=== PATIENT | female | born 1930 | race Caucasian/White ===

== ENCOUNTER 2016-08-25 09:13 | Emergency (ER) | payer MEDICARE ==
[2016-08-25 09:42] LABS: Bilirubin Negative (Negative); Blood, Urine Trace (Negative); Glucose, Urine (Dipstick) 100 mg/dL (Negative); Ketone, Urine Negative (Negative); Nitrite Positive (Negative); Protein, Urine (Dipstick) 30 mg/dL (Neg-Trace)
[2016-08-25 09:51] LABS: Bacteria/HPF 3+ HPF (None Seen); RBC/HPF 0-3 HPF (0-3)
--- NOTE | 2016-08-25 10:26 | ERRECORD ---
[facility] EMERGENCY RECORD HPI UTI (10:13 SROB) CHIEF COMPLAINT: Patient presents for evaluation of urinary tract infection signs or symptoms:, frequency, urine odor, Urine color/clarity: incontinence last night times 2. LOCATION: No localizing symptoms. QUALITY: Described as similar to previous episodes. SEVERITY: Maximum severity of symptoms moderate, Currently symptoms are moderate. TIME COURSE: Gradual onset of symptoms, 1, days priror to arrival. ASSOCIATED WITH FEMALE: She has been a bit more confused than usual but she does have dementia. EXACERBATED BY: Patient's condition exacerbated by nothing. RELIEVED BY: Patient's condition relieved by nothing. ROS (10:14 SROB) CONSTITUTIONAL: Historian denies chills, denies fever. ENT: Historian denies epistaxis, denies otalgia, denies rhinorrhea, denies sore throat. CARDIOVASCULAR: Historian denies chest pain. RESPIRATORY: Historian denies cough, denies shortness of breath. GI: Historian denies nausea, denies vomiting. GENITOURINARY FEMALE: She has had incontinence, frequency and foul odor to urine. MUSCULOSKELETAL: Historian denies neck pain. SKIN: Historian denies rash. NEUROLOGIC: Historian denies headache. PAST MEDICAL HISTORY (09:28 BDON) MEDICAL HISTORY: Past medical history includes pulmonary disease, pneumonia, Past medical history includes genitourinary history, urinary tract infection, Past medical history includes history of hyperlipidemia, high cholesterol, Past medical history includes history of hypertension, which has been treated, Past medical history includes neurological disease, dementia. FEMALE SURGICAL HISTORY: Surgical history of hysterectomy. Benign brain tumor removed. [id number]. PSYCHIATRIC HISTORY: Notes: dementia. SOCIAL HISTORY: Patient denies alcohol use, Patient denies drug use, Patient has no smoking history. KNOWN ALLERGIES No Known Drug Allergies CURRENT MEDICATIONS (09:25 BDON) amLODIPine: TABLET : Strength - 5 mg : ORAL Patient Dose: tab(s) Oral once a day (in the morning). aspirin: TABLET : Strength - 81 mg : ORAL Patient Dose: 1 tab(s) Oral once a day (in the morning). &a-1R&a+25V*p+0X*p1856J*c202B*c15G*c2P*p-0X&a-25V&a+1R Name: Amena Resendiz : 1930 F85 MedRec: [id number] AcctNum: [id number] Prepared: Sat Aug 25, 2016 13:35 by Interface Page 1 of 3 pMD [facility] EMERGENCY RECORD Lipitor: TABLET : Strength - 10 mg : ORAL Patient Dose: 1 tab(s) Oral once a day (in the morning). Myrbetriq: TABLET, EXTENDED RELEASE 24 HR : Strength - 25 mg : ORAL Patient Dose: 1 tab(s) Oral once a day (in the morning). cholecalciferol (vitamin D3): CAPSULE : Strength - 5,000 unit : ORAL Patient Dose: 1 tab(s) Oral once a day (in the morning). Namenda: TABLET : Strength - 10 mg : ORAL Patient Dose: 1 tab(s) Oral once a day (at bedtime). donepezil: TABLET : Strength - 5 mg : ORAL Patient Dose: 1 tab(s) Oral once a day (at bedtime). melatonin: CAPSULE : Strength - 10 mg : ORAL Patient Dose: mg Oral once a day. cranberry: CAPSULE : Strength - 1,000 mg : ORAL Patient Dose: mg Oral once a day. VITAL SIGNS VITAL SIGNS: BP: 182/77, Pulse: 52, Resp: 18, Temp: 98.3 (Oral), Pain: 3, O2 sat: 98, Time: 08/25/2016 09:25. (09:25 BDON) BP: 170/79, Pulse: 53, Time: 08/25/2016 10:35. (10:35 BDON) PHYSICAL EXAM (10:15 SROB) CONSTITUTIONAL: Vital signs reviewed, Patient alert and oriented to person, place and time. HEAD: Head exam included findings of head atraumatic, normocephalic. EYES: Pupils equally round and reactive to light, Extraocular muscles intact, Conjunctiva normal. ENT: Ear exam normal, external ear normal, no drainage, no bleeding, Nose exam normal, no bleeding from nares. NECK: Neck exam included findings of normal range of motion, Trachea midline, no jugular venous distention. RESPIRATORY CHEST: Respiratory exam included findings of no respiratory distress, Breath sounds clear, No wheezing, No rales, No rhonchi. CARDIOVASCULAR: Cardiovascular exam included findings of heart rate regular rate and rhythm, Heart sounds normal, normal S1, normal S2, no murmurs. ABDOMEN FEMALE: Abdominal exam normal. SKIN: Skin exam included findings of skin warm, dry. MEDICATION ADMINISTRATION SUMMARY Drug Name: Keflex, Dose Ordered: 500 mg, Route: Oral, Status: Given, &a-1R&a+25V*p+0X*a0777Q*c202B*c15G*c2P*p-0X&a-25V&a+1R Name: Amena Resendiz : 1930 F85 MedRec: [id number] AcctNum: [id number] Prepared: Sat Aug 25, 2016 13:35 by Interface Page 2 of 3 pMD [facility] EMERGENCY RECORD Time: 10:25 08/25/2016, Detailed record available in Medication Service section. PROBLEM LIST No recorded problems DIAGNOSIS (10:19 SROB) FINAL: PRIMARY: UTI. PRESCRIPTION (10:19 SROB) Keflex: CAPSULE : 500 mg : ORAL : Quantity: 1 Unit: cap(s) Route: ORAL Schedule: 4 times a day Dispense: 20 May substitute. Refills: No Refills . NOTES: No Refills. DISPOSITION PATIENT: Disposition Type: Discharge, Disposition: *Discharge Home, Disposition Transport: Ambulatory, Condition: Good. (10:19 SROB) Patient left the department. (10:46 BDON) Faith: BDON=YANE Ly, Bhavani SROB=MD Ned, [facility] &a-1R&a+25V*p+0X*l7392Z*c202B*c15G*c2P*p-0X&a-25V&a+1R Name: Amena Resendiz : 1930 F85 MedRec: [id number] AcctNum: [id number] Prepared: Sat Aug 25, 2016 13:35 by Interface Page 3 of 3 pMD MTDD
[2016-08-25] MEDS ORDERED: Cephalexin 500 MG CAP ONE (10:27)
--- NOTE | 2016-08-25 10:33 | PICIS ---
[facility] EMERGENCY RECORD TRIAGE ([facility] Aug 25, 2016 09:24 BDON) TRIAGE NOTES: Increased confusion, strong urine smell with incontinence. ([facility] Aug 25, 2016 09:24 BDON) PATIENT: NAME: Amena Resendiz, AGE: 85, GENDER: female, : [id number], TIME OF GREET: SatAug 25, 2016 09:14, PREFERRED LANGUAGE: Indonesian, ETHNICITY: Not or , ECODE BILLING MAP: [facility], SSN: [id number], Zip Code: [address], KG WEIGHT: 52.16, PHONE: , , , PERSON ID: [id number], PCP: Jonel HELM POLLACHI. ([facility] Aug 25, 2016 09:24 BDON) COMPLAINT: UTI. ([facility] Aug 25, 2016 09:24 BDON) ADMISSION: URGENCY: 4 Non Urgent, ADMISSION SOURCE: Home, TRANSPORT: Walk-in, BED: TRIAGE. ([facility] Aug 25, 2016 09:24 BDON) ASSESSMENT: Assessment: Incontinence, confusion, Symptoms began 2 days ago. (09:28 BDON) TREATMENTS IN PROGRESS: Treatments given Prehospital: [facility]. (09:28 BDON) PROVIDERS: TRIAGE NURSE: Bhavani Ly RN. ([facility] Aug 25, 2016 09:24 BDON) PREVIOUS VISIT ALLERGIES: No Known Drug Allergies. ([facility] Aug 25, 2016 09:24 BDON) No Known Drug Allergies. (09:28 BDON) KNOWN ALLERGIES No Known Drug Allergies CURRENT MEDICATIONS (09:25 BDON) amLODIPine: TABLET : Strength - 5 mg : ORAL Patient Dose: tab(s) Oral once a day (in the morning). aspirin: TABLET : Strength - 81 mg : ORAL Patient Dose: 1 tab(s) Oral once a day (in the morning). Lipitor: TABLET : Strength - 10 mg : ORAL Patient Dose: 1 tab(s) Oral once a day (in the morning). Myrbetriq: TABLET, EXTENDED RELEASE 24 HR : Strength - 25 mg : ORAL Patient Dose: 1 tab(s) Oral once a day (in the morning). cholecalciferol (vitamin D3): CAPSULE : Strength - 5,000 unit : ORAL Patient Dose: 1 tab(s) Oral once a day (in the morning). Namenda: TABLET : Strength - 10 mg : ORAL Patient Dose: 1 tab(s) Oral once a day (at bedtime). donepezil: TABLET : Strength - 5 mg : ORAL Patient Dose: 1 tab(s) Oral once a day (at bedtime). melatonin: CAPSULE : Strength - 10 mg : ORAL &a-1R&a+25V*p+0X*n6087K*c202B*c15G*c2P*p-0X&a-25V&a+1R Name: Amena Resendiz : 1930 F85 MedRec: [id number] AcctNum: [id number] Prepared: Sat Aug 25, 2016 13:41 by Interface Page 1 of 5 pMD [facility] EMERGENCY RECORD Patient Dose: mg Oral once a day. cranberry: CAPSULE : Strength - 1,000 mg : ORAL Patient Dose: mg Oral once a day. VITAL SIGNS VITAL SIGNS: BP: 182/77, Pulse: 52, Resp: 18, Temp: 98.3 (Oral), Pain: 3, O2 sat: 98, Time: 08/25/2016 09:25. (09:25 BDON) BP: 170/79, Pulse: 53, Time: 08/25/2016 10:35. (10:35 BDON) NURSING ASSESSMENT: GENITOURINARY (09:54 BDON) CONSTITUTIONAL: Patient arrives ambulatory, History obtained from, family member: daughter, Patient appears, uncomfortable, Patient cooperative, Patient alert, Patient is, confused, Skin warm, Skin dry, Skin normal in color. GENITOURINARY FEMALE: Associated with urinary complaints, incontinence. ABDOMEN: Abdomen assessment findings include abdomen symmetrical, Abdomen soft, non-tender. SAFETY: Side rails up, Cart/Stretcher in lowest position, Family at bedside, Call light within reach, Hospital ID band on, Patient in view of the nursing station. NURSING PROCEDURE: DISCHARGE NOTE (10:35 BDON) DISCHARGE: Patient discharged to home, ambulating with walker, accompanied by other family member, Summary of Care printed/ provided, Patient requested and was provided an electronic copy of Discharge Instructions, Transition record given to patient, Discharge instructions given to patient, Discharge instructions given to daughter, Simple or moderate discharge teaching performed, Prescriptions given and instructions on side effects given, Medication reconciliation form given, Above person(s) verbalized understanding of discharge instructions and follow-up care, Patient treated and evaluated by physician. VITAL SIGNS: BP: 170, / 79, Pulse: 53. ORDER DETAILS Order Name: Culture, Urine, Status: Active, Time: 10:16 08/25/2016, User: CATHY, - Ordered for: MD Marino Sam, - Entered by: MD Marino Sam - Sat Aug 25, 2016 10:16, - Quantity: 1, Order Name: Urinalysis w/ Rflx Microscopic, Status: Active, Time: 09:26 08/25/2016, User: ANASTACIA, - Ordered for: MD Ned Juan Antonio, - Entered by: YANE Ly Bettye - Sat Aug 25, 2016 09:26, - Quantity: 1. MEDICATION ADMINISTRATION SUMMARY &a-1R&a+25V*p+0X*x3715T*c202B*c15G*c2P*p-0X&a-25V&a+1R Name: Amena Resendiz : 1930 F85 MedRec: [id number] AcctNum: [id number] Prepared: Sat Aug 25, 2016 13:41 by Interface Page 2 of 5 pMD [facility] EMERGENCY RECORD Drug Name: Keflex, Dose Ordered: 500 mg, Route: Oral, Status: Given, Time: 10:25 08/25/2016, Detailed record available in Medication Service section. MEDICATION SERVICE (10:25 SROB) Keflex: Order: Keflex (cephalexin monohydrate) - Dose: 500 mg : Oral Schedule: Now Ordered by: Juan Antonio Marino MD Entered by: Juan Antonio Marino MD Sat Aug 25, 2016 10:17 Documented as given by: Bhavani Ly RN Sat Aug 25, 2016 10:25 Patient, Medication, Dose, Route and Time verified prior to administration. Site: Medication administered P.O., Correct patient, time, route, dose and medication confirmed prior to administration, Patient advised of actions and side-effects prior to administration, Allergies confirmed and medications reviewed prior to administration. HPI UTI (10:13 SROB) CHIEF COMPLAINT: Patient presents for evaluation of urinary tract infection signs or symptoms:, frequency, urine odor, Urine color/clarity: incontinence last night times 2. LOCATION: No localizing symptoms. QUALITY: Described as similar to previous episodes. SEVERITY: Maximum severity of symptoms moderate, Currently symptoms are moderate. TIME COURSE: Gradual onset of symptoms, 1, days priror to arrival. ASSOCIATED WITH FEMALE: She has been a bit more confused than usual but she does have dementia. EXACERBATED BY: Patient's condition exacerbated by nothing. RELIEVED BY: Patient's condition relieved by nothing. ROS (10:14 SROB) CONSTITUTIONAL: Historian denies chills, denies fever. ENT: Historian denies epistaxis, denies otalgia, denies rhinorrhea, denies sore throat. CARDIOVASCULAR: Historian denies chest pain. RESPIRATORY: Historian denies cough, denies shortness of breath. GI: Historian denies nausea, denies vomiting. GENITOURINARY FEMALE: She has had incontinence, frequency and foul odor to urine. MUSCULOSKELETAL: Historian denies neck pain. SKIN: Historian denies rash. NEUROLOGIC: Historian denies headache. PAST MEDICAL HISTORY (09:28 BDON) MEDICAL HISTORY: Past medical history includes pulmonary disease, pneumonia, Past medical history includes genitourinary history, urinary tract infection, Past medical history includes &a-1R&a+25V*p+0X*m1351L*c202B*c15G*c2P*p-0X&a-25V&a+1R Name: Amena Resendiz : 1930 F85 MedRec: [id number] AcctNum: [id number] Prepared: Sat Aug 25, 2016 13:41 by Interface Page 3 of 5 pMD [facility] EMERGENCY RECORD history of hyperlipidemia, high cholesterol, Past medical history includes history of hypertension, which has been treated, Past medical history includes neurological disease, dementia. FEMALE SURGICAL HISTORY: Surgical history of hysterectomy. Benign brain tumor removed. [id number]. PSYCHIATRIC HISTORY: Notes: dementia. SOCIAL HISTORY: Patient denies alcohol use, Patient denies drug use, Patient has no smoking history. PHYSICAL EXAM (10:15 SROB) CONSTITUTIONAL: Vital signs reviewed, Patient alert and oriented to person, place and time. HEAD: Head exam included findings of head atraumatic, normocephalic. EYES: Pupils equally round and reactive to light, Extraocular muscles intact, Conjunctiva normal. ENT: Ear exam normal, external ear normal, no drainage, no bleeding, Nose exam normal, no bleeding from nares. NECK: Neck exam included findings of normal range of motion, Trachea midline, no jugular venous distention. RESPIRATORY CHEST: Respiratory exam included findings of no respiratory distress, Breath sounds clear, No wheezing, No rales, No rhonchi. CARDIOVASCULAR: Cardiovascular exam included findings of heart rate regular rate and rhythm, Heart sounds normal, normal S1, normal S2, no murmurs. ABDOMEN FEMALE: Abdominal exam normal. SKIN: Skin exam included findings of skin warm, dry. LAB INTERPRETATION (10:16 SROB) INTERPRETATION: I reviewed the lab results, All labs normal except as noted below, pyuria present on lab. EVENTS TRANSFER: Triage to Emergency Triage. (Sat Aug 25, 2016 09:24 BDON) Emergency Triage to Emergency Room -03. (09:25 BDON) Removed from Emergency Emergency Room -03. (10:46 BDON) PROBLEM LIST No recorded problems DIAGNOSIS (10:19 SROB) FINAL: PRIMARY: UTI. DISPOSITION PATIENT: Disposition Type: Discharge, Disposition: *Discharge Home, Disposition Transport: Ambulatory, Condition: Good. (10:19 SROB) Patient left the department. (10:46 BDON) &a-1R&a+25V*p+0X*k3880B*c202B*c15G*c2P*p-0X&a-25V&a+1R Name: Amena Resendiz : 1930 F85 MedRec: [id number] AcctNum: [id number] Prepared: Sat Aug 25, 2016 13:41 by Interface Page 4 of 5 pMD [facility] EMERGENCY RECORD INSTRUCTION (10:22 SROB) DISCHARGE: UTI CYSTITIS FEMALE ADULT. FOLLOWUP: Jonel HELM, BRYAN, Internal Medicine, [address] [place] [id number], [phone], Follow up with Primary Care Physician in 2-3 days. PRESCRIPTION (10:19 SROB) Keflex: CAPSULE : 500 mg : ORAL : Quantity: 1 Unit: cap(s) Route: ORAL Schedule: 4 times a day Dispense: 20 May substitute. Refills: No Refills . NOTES: No Refills. IMAGING (10:45 BDON) *DISCHARGE INSTRUCTIONS RECEIPT: Image captured from scanner. *SUPPLY CHARGE SHEET: Image captured from scanner. ADMIN DIGITAL SIGNATURE: MD Marino Sam. (10:20 SROB) YANE Ly Bettye. (10:46 BDON) MD Marino Sam. (13:32 SROB) RESULTS (10:16 SROB) LABORATORY: Urine Microscopic Collection DT: Sat Aug 25, 2016 09:43, RBC/HPF 0-3 HPF, Range (0-3), *WBC/HPF 11-20 - H HPF, Range (0-3), *Squamous Epithelial 4-6 - H HPF, Range (0-3), *Bacteria/HPF 3+ - H HPF, Range (None Seen). Urinalysis w/ Rflx Microscopic Collection DT: Sat Aug 25, 2016 09:43, Color Dark Yellow , Range (Yellow), Clarity Hazy , Range (Clear), Specific [place], Urine 1.015 , Range (1.005-1.030), pH, Urine 6.0 , Range (5.0-9.0), *Leukocyte Large - H , Range (Negative), *Nitrite Positive - H , Range (Negative), *Protein, Urine (Dipstick) 30 - H mg/dL, Range (Neg-Trace), *Glucose, Urine (Dipstick) 100 - H mg/dL, Range (Negative), Ketone, Urine Negative mg/dL, Range (Negative), *Urobilinogen 2.0 - H mg/dL, Range (0.2-1.0), Bilirubin Negative , Range (Negative), *Blood, Urine Trace - H , Range (Negative). Faith: BDON=YANE Ly Bettye SROB=MD Ned, Juan Antonio &a-1R&a+25V*p+0X*a1235L*c202B*c15G*c2P*p-0X&a-25V&a+1R Name: Amena Resendiz : 1930 F85 MedRec: [id number] AcctNum: [id number] Prepared: Sat Aug 25, 2016 13:41 by Interface Page 5 of 5 pMD MTDD
== END 2016-08-25 10:35 | disposition home or self-care (01) ==
LOC: NAV ERS 09:13
DX: N39.0 Urinary tract infection, site not specified (principal); E78.5 Hyperlipidemia, unspecified; E78.00 Pure hypercholesterolemia, unspecified; I10 Essential (primary) hypertension; J18.9 Pneumonia, unspecified organism; F03.90 Unspecified dementia, unspecified severity, without behavioral disturbance, psychotic disturbance, mood disturbance, and anxiety; Z79.82 Long term (current) use of aspirin; Z79.899 Other long term (current) drug therapy
CPT/HCPCS: 81003; 81015; 87077; 87086; 87186; 99283

== ENCOUNTER 2016-11-07 11:07 | Outpatient (CLI) | payer MEDICARE ==
[2016-11-07 13:36] LABS: Bilirubin Negative (Negative); Blood, Urine Negative (Negative); Clarity Clear (Clear); Glucose, Urine (Dipstick) Negative (Negative); Leukocyte Trace (Negative); Nitrite Negative (Negative); Protein, Urine (Dipstick) Negative (Neg-Trace); Specific Gravity, Urine 1.015 (1.005-1.030); Urobilinogen 0.2 mg/dL (0.2-1.0); pH, Urine 7.5 (5.0-9.0)
[2016-11-07 14:11] LABS: Bacteria/HPF 2+ HPF (None Seen); Other Microscopic Description NO; RBC/HPF None Seen HPF (0-3); Squamous Epithelial 0-3 HPF (0-3); WBC/HPF 0-3 HPF (0-3)
== END 2016-11-07 11:08 | disposition home or self-care (01) ==
LOC: NAVSJIPCSP 11:07
PROVIDERS: ATTEND Internal Medicine
DX: N39.0 Urinary tract infection, site not specified (principal)
CPT/HCPCS: 81001; 87077; 87086; 87186

== ENCOUNTER 2016-11-29 19:47 | Inpatient (IN) | payer MEDICARE ==
[2016-11-29 20:23] LABS: Bilirubin Negative (Negative); Blood, Urine Trace (Negative); Clarity Clear (Clear); Glucose, Urine (Dipstick) Negative (Negative); Leukocyte Negative (Negative); Nitrite Negative (Negative); Protein, Urine (Dipstick) Negative (Neg-Trace); Specific Gravity, Urine 1.015 (1.005-1.030); Urobilinogen 0.2 mg/dL (0.2-1.0)
[2016-11-29] MEDS ORDERED: Acetaminophen 500 MG TAB ONE (20:28)
[2016-11-29] MEDS ORDERED: Sodium Chloride 0.9% 500 ML ONE (20:28)
[2016-11-29 20:30] LABS: #Basophils 0.1 thou/uL (0.0-0.2); #Eosinphils 0.2 thou/uL (0.0-0.7); #Lymphocytes 1.3 thou/uL (1.20-3.40); #Monocytes 0.7 thou/uL (0.11-0.59); %Eosinophils 2.3 % (0.0-10.0); %Lymphocytes 15.4 % (21.0-51.0); %Monocytes 8.3 % (0.0-10.0); Hemoglobin 13.5 g/dL (12.0-16.0); Mean Corpuscular HGB CONC 32.8 g/dL (32.0-36.0); Mean Corpuscular Hemoglobin 28.3 pg (27.0-31.0); Mean Corpuscular Volume 86.4 fl (81.0-99.0); Mean Platelet Volume 8.1 fL (7.4-10.4); Platelet Count 130 thou/uL (130-400); RBC Distribution Width 12.5 % (11.5-14.5); Red Blood Cell (RBC) Count 4.77 mill/uL (4.20-5.40); White Blood Cell (WBC) Count 8.2 thou/uL (4.8-10.8)
--- NOTE | 2016-11-29 20:32 | RAD ---
SEMIUPRIGHT PORTABLE CHEST ONE VIEW: 11/29/16 HISTORY: 86-year-old female with fever, runny nose and sore throat and dry cough. COMPARISON: 12/25/11. FINDINGS: Minimal rotation to the left. The heart size is normal. Atherosclerosis of the aorta. No confluent p neumonia, overt edema, or pleural effusion or other acute process. IMPRESSION: No acute intrathoracic disease. No evidence for pneumonia. POS: [facility]
[2016-11-29 20:37] LABS: Bacteria/HPF None Seen HPF (None Seen); Squamous Epithelial 0-3 HPF (0-3); WBC/HPF None Seen HPF (0-3)
[2016-11-29 20:49] LABS: ALT (SGPT) 41 U/L (8-55); AST (SGOT) 33 U/L (5-34); Albumin 4.3 g/dL (3.4-4.8); Alkaline Phosphatase 60 U/L (40-150); Anion Gap 16 mmol/L (10-20); BUN (Urea Nitrogen) 13 mg/dL (9.8-20.1); Bilirubin, Total 0.7 mg/dL (0.2-1.2); Calc. Creatinine Clearance 0 mL/min (70-130); Calcium 10.7 mg/dL (7.8-10.44); Carbon Dioxide 26 mmol/L (23-31); Chloride 103 mmol/L (98-107); Estimated GFR-MDRD 54; Globulin 3.2 g/dL (2.4-3.5); Glucose 112 mg/dL (83-110); Protein, Total 7.5 g/dL (5.8-8.1); Sodium 142 mmol/L (136-145)
[2016-11-29] MEDS ORDERED: Acetaminophen 500 MG TAB PO PRN (23:02)
[2016-11-29] MEDS ORDERED: 1/2 NS w/KCL 20 mEq 1,000 ML IV SCH (23:15)
[2016-11-30 06:42] LABS: Anion Gap 12 mmol/L (10-20); BUN (Urea Nitrogen) 9 mg/dL (9.8-20.1); Calc. Creatinine Clearance 44 mL/min (70-130); Carbon Dioxide 27 mmol/L (23-31); Chloride 108 mmol/L (98-107); Estimated GFR-MDRD 66; Glucose 97 mg/dL (83-110); Sodium 144 mmol/L (136-145)
[2016-11-30 06:51] LABS: Potassium 2.7 mmol/L (3.5-5.1)
[2016-11-30 07:13] LABS: Hemoglobin 12.4 g/dL (12.0-16.0); MDiff Complete? YES; Mean Corpuscular Hemoglobin 28.4 pg (27.0-31.0); Mean Corpuscular Volume 85.9 fl (81.0-99.0); Platelet Count 117 thou/uL (130-400); RBC Distribution Width 11.9 % (11.5-14.5); Red Blood Cell (RBC) Count 4.37 mill/uL (4.20-5.40); White Blood Cell (WBC) Count 6.4 thou/uL (4.8-10.8)
[2016-11-30 07:15] LABS: Band 5 % (5-11); Lymphocytes 14 % (21-51); Monocytes 5 % (0-10); Neutrophil 76 % (42-75); PLT Morphology Comment Appears Decreased
[2016-11-30] MEDS ORDERED: Potassium Chloride 20 MEQ TAB PO SCH (07:15)
[2016-11-30] MEDS: NS 0.9% w/ 40 MEQ KCL 1,000 ML IV SCH ×2 (07:20→19:54)
[2016-11-30] MEDS ORDERED: Acetaminophen 325 MG TAB PO PRN (07:59)
[2016-11-30] MEDS ORDERED: TIMOLOL OP SCH (09:00)
[2016-11-30] MEDS ORDERED: VIT B6 PO SCH (09:00)
[2016-11-30] MEDS ORDERED: ASCORBIC ACID PO SCH (09:00)
[2016-11-30] MEDS ORDERED: CRANBERRY PO SCH (09:00)
[2016-11-30] MEDS ORDERED: MAG CIT PO SCH (09:00)
[2016-11-30] MEDS ORDERED: DORZOLAMIDE OP SCH (09:00)
[2016-11-30] MEDS ORDERED: [UNRECOGNIZED DRUG - OTHER] PO SCH (09:00)
[2016-11-30] MEDS: Lactinex Tablet PO SCH ×2 (09:27→20:00)
[2016-11-30] MEDS: Atorvastatin Calcium 10 MG TAB PO SCH (09:28)
[2016-11-30] MEDS: Dorzolamide HCl/Timolol Maleate 2%/0.5% Ophth Soln 10 ml Bottle EA EYE SCH ×2 (09:47→20:00)
--- NOTE | 2016-11-30 10:59 | HP ---
REASON FOR ADMISSION: Fever of unknown etiology, worsening confusion, and dehydration. BRIEF HISTORY: This is a pleasant 86-year-old female who apparently is just finishing out her Macrobid for her urinary tract infection. She has been doing well since we started on the Macr obid, but over the last 2 days, daughter has noticed her to be more confused having some urinary inc ontinence and a low grade fever. They brought her into the hospital for evaluation[facility] her workup was essentially unremarkable except for mild dehydration and the suspicion is for poss ible viral infection, but given her dehydration and her confusion, it was decided to admit her to [facility] with some IV fluids, monitor her temperature, look for any localizing signs of infection, and await blood cultures. This morning she states that she is feeling better. She denies any ligh theadedness or dizziness. She was able to recognize me. She knows she is in the hospital. Her sit ter caregiver is in the room as well. PAST MEDICAL HISTORY: 1. Hypertension. 2. Dyslipidemia. 3. Overactive bladder. 4. Atrophic vaginitis. 5. Senile dementia. PAST SURGICAL HISTORY: 1. Total abdominal hysterectomy. 2. Bilateral cataract extraction. 3. Posterior fossa angioblastoma removal in 1983. 4. Right retinal detachment surgery. 5. Hemangioblastoma removal in 03/2009. MEDICATIONS: She is supposed to be on aspirin 81 mg daily, Aricept 10 mg daily, Namenda 10 mg b.i.d ., Myrbetriq ER 25 mg daily, vitamin D 400 international units daily, cranberry tablets daily, atorv astatin 10 mg daily, and amlodipine 10 mg daily. FAMILY HISTORY: Positive for coronary artery disease in her father. PSYCHOSOCIAL HISTORY: No tobacco, alcohol, or IV drug abuse. She lives alone, but daughter does tovar ve someone with her at all times. ALLERGIES: No known drug allergies. REVIEW OF SYSTEMS: CARDIOVASCULAR SYSTEM: Denies any chest pain, shortness of breath, palpitations, PND, orthopnea, pe ulises edema. RESPIRATORY SYSTEM: Denies any chronic cough, expectoration or pleuritic type chest pain. GASTROINTESTINAL SYSTEM: Denies any nausea, vomiting, diarrhea, constipation, hematemesis, melena, hematochezia. GENITOURINARY SYSTEM: Does have overactive bladder and recurrent UTI, history of atrophic vaginitis . CENTRAL NERVOUS SYSTEM: Does have cognitive deficits from her dementia. PHYSICAL EXAMINATION: GENERAL: Pleasant 86-year-old female resting comfortably in no acute distress. Her sitte r is in the room as stated, she is able to recognize me. She knows she is in the hospital. VITAL SIGNS: T-max is 99.5, pulse 77, respirations 20, oxygen saturation is 95% on room air, and bl ood pressure is 171/79. HEENT: Normocephalic, atraumatic. Pupils equal and reactive to light and accommodation. NECK: No JVD, thyromegaly, cervical adenopathy, or throat exudates. No carotid bruits. CARDIOVASCULAR SYSTEM: S1, S2 plus. Rate and rhythm regular. RESPIRATORY SYSTEM: Normal vesicular breath sounds without any adventitious sounds. ABDOMEN: Soft, nontender, bowel sounds heard in all quadrants. EXTREMITIES: Without cyanosis or clubbing. Peripheral pulses are palpable. CENTRAL NERVOUS SYSTEM: Other than cognitive deficits, it is nonfocal. LABORATORY DATA AND IMAGING: Laboratory values; white count is 6.4, H\T\H is 12.4 and 37.5, 76% milan trophils, 14% lymphocytes, platelet count is 117,000, it was 130 yesterday. Sodium 144, potassium 2 .7, BUN and creatinine are 9 and 0.82. Calcium is back down to normal at 10.0. Urine and blood cul tures are pending. Influenza was negative. Chest x-ray personally reviewed and I do not see any ac tive cardiopulmonary disease. We will await radiology interpretation. IMPRESSION: 1. Fever and worsening confusion, most likely viral syndrome. 2. Recent urinary tract infection treated with Macrobid. 3. Senile dementia. 4. Hypertension. 5. Dyslipidemia. 6. Deconditioning. 7. Overactive bladder. PLAN: 1. Replace potassium. 2. Change IV fluids to normal saline with 40 of K at 75. 3. Resume home medications. 4. Heart healthy diet. 5. DVT and stress ulcer prophylaxis. 6. Decubitus precautions. 7. Physical therapy evaluation. 8. Recheck laboratory values in the morning. 9. Await cultures if the cultures are negative and she is almost back to baseline. If she maintain s her current condition, we will anticipate discharging her home tomorrow. I discussed with her car egari Murphy sap bw consultant noon today until 9:00 p.m. Saturday.
[2016-11-30 11:17] LABS: Potassium 3.1 mmol/L (3.5-5.1)
[2016-11-30 13:50] VITALS: BMI 22.4
[2016-11-30] MEDS: Donepezil HCl 5 MG TAB PO SCH (20:00)
[2016-12-01 05:50] LABS: Anion Gap 15 mmol/L (10-20); BUN (Urea Nitrogen) 10 mg/dL (9.8-20.1); Calc. Creatinine Clearance 42 mL/min (70-130); Calcium 10.4 mg/dL (7.8-10.44); Carbon Dioxide 22 mmol/L (23-31); Chloride 111 mmol/L (98-107); Estimated GFR-MDRD 62; Glucose 101 mg/dL (83-110); Potassium 4.2 mmol/L (3.5-5.1); Sodium 144 mmol/L (136-145)
[2016-12-01 06:14] LABS: Band 24 % (5-11); Hemoglobin 13.2 g/dL (12.0-16.0); Lymphocytes 13 % (21-51); MDiff Complete? YES; Mean Corpuscular HGB CONC 32.6 g/dL (32.0-36.0); Mean Corpuscular Hemoglobin 28.3 pg (27.0-31.0); Mean Corpuscular Volume 86.7 fl (81.0-99.0); Mean Platelet Volume 8.2 fL (7.4-10.4); Monocytes 5 % (0-10); Neutrophil 58 % (42-75); PLT Morphology Comment Appears Adequate; Platelet Count 122 thou/uL (130-400); RBC Distribution Width 12.4 % (11.5-14.5); RBC Morphology Normal; Red Blood Cell (RBC) Count 4.68 mill/uL (4.20-5.40); White Blood Cell (WBC) Count 11.3 thou/uL (4.8-10.8)
--- NOTE | 2016-12-01 08:49 | RAD ---
RADIOGRAPH CHEST 2 VIEWS: HISTORY: 86-year-old female with acute dyspnea and fever. FINDINGS: There is no air space density, pulmonary edema, pleural effusion, pneumothorax, or cardiomegaly. IMPRESSION: No acute cardiopulmonary findings. jn [] POS: [facility]
[2016-12-01] MEDS: NS 0.9% w/ 40 MEQ KCL 1,000 ML IV SCH (09:00)
[2016-12-01] MEDS: Dorzolamide HCl/Timolol Maleate 2%/0.5% Ophth Soln 10 ml Bottle EA EYE SCH ×2 (09:10→20:26)
[2016-12-01] MEDS: Lactinex Tablet PO SCH ×2 (09:10→20:25)
[2016-12-01] MEDS: Atorvastatin Calcium 10 MG TAB PO SCH (09:11)
[2016-12-01] MEDS: Stress 600 With Zinc 1 TAB PO SCH (09:12)
--- NOTE | 2016-12-01 09:21 | PRG ---
DATE OF SERVICE: 12/01/2016 HISTORY OF PRESENT ILLNESS: Ms. Resendiz is a very pleasant 86-year-old white female patient of Dr. Eleno peña that had some confusion with some urinary incontinence and low grade fever. She was br ought to the hospital for evaluation and thought to have a viral infection. She had some mental sta tus changes and was dehydrated. She was admitted to the hospital with some IV fluids. Last night, she spiked a temperature again of 100.8. This morning, she had slight cough and she has had complaints of some dizziness. We will get a ches t x-ray and repeat her lab work for tomorrow since her lab was slightly elevated today. PHYSICAL EXAMINATION: VITAL SIGNS: Revealed blood pressure this morning 170/77, pulse 77-97, respirations 18-19, O2 sat 9 4%-95%, temperature max 100.8. LABORATORY DATA: Today reveals white count was up from 6400-11,300, hemoglobin 13.2, hematocrit 40. 6, and platelet count of 122,000. She has 24 bands, unknown etiology. Chemistry this morning reveals sodium 144, potassium 4.2, chloride 101, carbon dioxide 22 with a BUN of 10 and creatinine 0.86. Her sugar is 101 this morning. Her urinalysis from 2 days ago was unre markable. PHYSICAL EXAMINATION: GENERAL: This is a well-developed, well-nourished, very pleasant white female in no apparent distre ss at this time. HEENT: Reveals normocephalic, nontraumatic cranium. Pupils are equally round and reactive. Extrao cular movements intact. Nose and throat are slightly dry. NECK: Supple, without masses, nodes or bruits. LUNGS: Chest is clear to auscultation. No rales, no rhonchi, no wheezes are heard. Rare cough is noted. HEART: Reveals a regular rate and rhythm without murmurs, gallops or rubs. ABDOMEN: Soft, nontender, without organomegaly, normal bowel sounds are noted. No rebound or guard ing is noted. : Exam is deferred. EXTREMITIES: Reveal no clubbing, cyanosis or edema. ASSESSMENT: 1. Continued fever with some dizziness this morning. 2. White count has increased from 6400-11,300 with increase in bands from 5-24 and decrease in neut rophils from 76-58, and a decrease in lymphocytes from 14-13. 3. Senile dementia. 4. Hypertension. 5. Recent urinary tract infection doing well, on Macrobid. 6. Hyperlipidemia. 7. Deconditioning. 8. Overactive bladder. PLAN: 1. We had a chest x-ray this morning 2 views. 2. Repeat labs for tomorrow to make sure her white count starts coming down. 3. Hold fluids right now. 4. Potassium is back to her normal. 5. Continue home medications. 6. Continued healthy heart diet. 7. DVT and stress ulcer prophylaxis. 8. Continue decubitus precautions. 9. Repeat lab values in the morning. 10. Microbiology reveals blood cultures negative x2 at this time. Influenza A and B are negative.
[2016-12-01] MEDS: Donepezil HCl 5 MG TAB PO SCH (20:25)
[2016-12-02 06:11] LABS: Anion Gap 12 mmol/L (10-20); BUN (Urea Nitrogen) 18 mg/dL (9.8-20.1); Calc. Creatinine Clearance 39 mL/min (70-130); Carbon Dioxide 23 mmol/L (23-31); Chloride 110 mmol/L (98-107); Estimated GFR-MDRD 58; Glucose 99 mg/dL (83-110); Potassium 3.5 mmol/L (3.5-5.1); Sodium 141 mmol/L (136-145)
[2016-12-02 06:19] LABS: Band 16 % (5-11); Hemoglobin 11.3 g/dL (12.0-16.0); Lymphocytes 16 % (21-51); MDiff Complete? YES; Mean Corpuscular HGB CONC 32.9 g/dL (32.0-36.0); Mean Corpuscular Hemoglobin 28.2 pg (27.0-31.0); Mean Corpuscular Volume 85.8 fl (81.0-99.0); Metamyelocyte 2 % (0-0); Monocytes 3 % (0-10); Neutrophil 63 % (42-75); PLT Morphology Comment Appears Decreased; Platelet Count 122 thou/uL (130-400); RBC Morphology Normal; Red Blood Cell (RBC) Count 3.99 mill/uL (4.20-5.40); White Blood Cell (WBC) Count 8.8 thou/uL (4.8-10.8)
[2016-12-02] MEDS ORDERED: Cipro 250 MG TAB PO SCH ×2 (08:45→20:00)
[2016-12-02] MEDS: Atorvastatin Calcium 10 MG TAB PO SCH (09:06)
[2016-12-02] MEDS: Lactinex Tablet PO SCH (09:06)
[2016-12-02 09:08] VITALS: BP 126/60
[2016-12-02] MEDS: Dorzolamide HCl/Timolol Maleate 2%/0.5% Ophth Soln 10 ml Bottle EA EYE SCH (09:08)
[2016-12-02] MEDS: Stress 600 With Zinc 1 TAB PO SCH (09:17)
[2016-12-02 10:35] VITALS: TEMP 98.1
--- NOTE | 2016-12-02 20:39 | DIS ---
DATE OF ADMISSION: 11/29/2016 DATE OF DISCHARGE: 12/02/2016 HOSPITAL COURSE: Ms. Resendiz is a very pleasant 86-year-old white female patient of pat Whitfield o was admitted to the hospital with confusion, urinary incontinence and low-grade fever. Urinalysis was initially unremarkable. She had some mental status changes. It was thought that she may have some mild dehydration and possible viral syndrome. The patient was hydrated up, not placed on any antibiotics. She did spike another temperature. Uri nalysis was unremarkable. We repeated her CBC and her white count bumped up. Labs were repeated this morning and her culture comes back this morning growing Enterobacter cloacae , which is sensitive to ciprofloxacin. With a recent urinary tract infection and her propensity to develop further urinary tract infection, we will go ahead and treat her with Cipro 500 mg twice a da y for 10 days. I did discuss this with her daughter who was in the room and she certainly agrees. I wrote a prescr iption for 500 mg of Cipro #19, the patient will have a dose this morning before she leaves. Then w jacklyn will discharge her home. PHYSICAL EXAMINATION: GENERAL: This is a well-developed, well-nourished, very thin white female in no apparent distress a t this time. She is much more alert and awake and talkative this morning. Her daughter states she is back to normal. HEENT: Reveals normocephalic and nontraumatic cranium. The pupils are equally round and reactive. Extraocular movements are intact. Nose and throat are slightly dry. NECK: Supple, without masses, nodes or bruits. CHEST: Clear to auscultation. No rales, no rhonchi, no wheezes are heard. No cough is noted, but when she does cough, it is somewhat raspy. She does have a couple of inspiratory wheezes, but no ra les are noted. We assume that the Cipro will cover any type of her upper respiratory infection also . HEART: Reveals a regular rate and rhythm without murmurs, gallops or rubs. ABDOMEN: Soft and nontender, without organomegaly, somewhat scaphoid. No rebound or guarding is no jennifer. GENITOURINARY: Deferred. EXTREMITIES: No clubbing, cyanosis or edema. DISCHARGE MEDICATIONS: Will include the following; 1. Tylenol p.r.n. 2. Amlodipine 5 mg daily. 3. Aspirin 81 mg daily. 4. Lipitor 10 mg daily. 5. Vitamin D 2000 units daily. 6. Ciprofloxacin 500 mg now and then twice a day for 10 days. 7. Aricept 5 mg at bedtime. 8. Namenda 20 mg a day. 9. Myrbetriq ER 25 mg daily. 10. Multivitamin-zinc daily. 11. Dorzolamide/timolol ophthalmic solution 1 drop in each eye twice a day. ASSESSMENT: 1. Urinary tract infection with Enterobacter cloacae resistant to most antibiotics susceptible to c iprofloxacin. 2. Senile dementia. 3. Hypertension. 4. Hyperlipidemia. 5. Generalized weakness. 6. Overactive bladder. PLAN: 1. Ciprofloxacin 500 mg now and the patient will get a prescription given to her daughter for 19 mo re pills, which is 1 pill twice a day until gone. 2. Follow up with Dr. Solares, in approximately 1 week. 3. Continue to encourage the patient to eat and drink. 4. For the cough, the patient can take Mucinex 600 twice a day and Robitussin DM p.r.n. cough. 5. Continue home medicines. 6. Continue healthy heart diet. 7. Continue deep venous thrombosis and stress ulcer prophylaxis. 8. Continue decubitus precautions.
== END 2016-12-02 12:05 | disposition home or self-care (01) | DRG 690 ==
LOC: NAV ERS 19:47 → NAV ACUTE 21:10
PROVIDERS: ADMIT Internal Medicine; ATTEND Internal Medicine
DX: N39.0 Urinary tract infection, site not specified (principal); B96.89 Other specified bacterial agents as the cause of diseases classified elsewhere; F03.90 Unspecified dementia, unspecified severity, without behavioral disturbance, psychotic disturbance, mood disturbance, and anxiety; E86.0 Dehydration; Z16.29 Resistance to other single specified antibiotic; I10 Essential (primary) hypertension; E78.5 Hyperlipidemia, unspecified; N32.81 Overactive bladder
CPT/HCPCS: 36415; 71010; 71020; 80048; 80053; 81003; 81015; 83605; 83880; 85025; 87040; 87077; 87086; 87186; A4216; J7050

== ENCOUNTER 2017-05-09 20:25 | Inpatient (IN) | payer MEDICARE ==
[2017-05-09] MEDS ORDERED: Sodium Chloride 0.9% 500 ML ONE (21:08)
[2017-05-09 21:32] LABS: #Lymphocytes 0.4 thou/uL (1.20-3.40); #Monocytes 0.3 thou/uL (0.11-0.59); #Neutrophils 8.9 thou/uL (1.40-6.50); %Basophils 0.4 % (0.0-1.0); %Eosinophils 0.4 % (0.0-10.0); %Lymphocytes 4.1 % (21.0-51.0); %Monocytes 2.9 % (0.0-10.0); %Neutrophils 92.2 % (42.0-75.0); Hemoglobin 13.6 g/dL (12.0-16.0); Mean Corpuscular Volume 90.7 fl (81.0-99.0); Mean Platelet Volume 9.8 fL (7.4-10.4); Platelet Count 118 thou/uL (130-400); White Blood Cell (WBC) Count 9.7 thou/uL (4.8-10.8)
--- NOTE | 2017-05-09 21:38 | RAD ---
PORTABLE AP CHEST X-RAY 05/09/17 HISTORY: Weakness and diarrhea. Altered mental status. COMPARISON: 11/29/16. The cardiac silhouette and pulmonary vasculature are within normal limits. Calcified granuloma in th e right upper lung zone is again seen. The lungs are otherwise clear. There has been no interval rafaela nge from prior study. IMPRESSION: Stable chest without evidence of an acute cardiopulmonary process. POS: [facility]
[2017-05-09 21:42] LABS: ALT (SGPT) 26 U/L (8-55); AST (SGOT) 24 U/L (5-34); Albumin 4.1 g/dL (3.4-4.8); Alkaline Phosphatase 62 U/L (40-150); Anion Gap 14 mmol/L (10-20); BUN (Urea Nitrogen) 15 mg/dL (9.8-20.1); Bilirubin, Total 0.9 mg/dL (0.2-1.2); CK (CPK) 42 U/L (29-168); Calc. Creatinine Clearance 0 mL/min (70-130); Calcium 10.6 mg/dL (7.8-10.44); Carbon Dioxide 24 mmol/L (23-31); Chloride 109 mmol/L (98-107); Estimated GFR-MDRD 51; Globulin 2.9 g/dL (2.4-3.5); Glucose 225 mg/dL (83-110); Potassium 3.4 mmol/L (3.5-5.1); Sodium 144 mmol/L (136-145)
[2017-05-09 21:43] LABS: Bilirubin Negative (Negative); Blood, Urine Small (Negative); Glucose, Urine (Dipstick) Negative (Negative); Leukocyte Trace (Negative); Nitrite Positive (Negative); Protein, Urine (Dipstick) Trace mg/dL (Neg-Trace); Specific Gravity, Urine 1.015 (1.005-1.030); Urobilinogen 0.2 mg/dL (0.2-1.0); pH, Urine 6.5 (5.0-9.0)
[2017-05-09 21:44] LABS: Troponin I Less than 0.010 ng/mL (< 0.028)
[2017-05-09 21:45] LABS: Clarity SL HAZY (Clear)
[2017-05-09 21:53] LABS: Bacteria/HPF 4+ HPF (None Seen); RBC/HPF 0-3 HPF (0-3); Squamous Epithelial 0-3 HPF (0-3)
[2017-05-09] MEDS ORDERED: Sodium Chloride 0.9% 100 ML ONE (22:29)
[2017-05-09] MEDS ORDERED: cefTRIAXone\\ROCEPHIN 2 GM VIAL ONE (22:29)
[2017-05-09] MEDS ORDERED: Sodium Chloride 0.9% 1,000 ML ONE (22:41)
[2017-05-09] MEDS: Sodium Chloride 0.9% 1,000 ML IV SCH (23:45)
[2017-05-10 00:05] VITALS: BMI 22.1
[2017-05-10 05:16] LABS: Band 4 % (5-11); Hemoglobin 12.3 g/dL (12.0-16.0); Lymphocytes 5 % (21-51); MDiff Complete? YES; Mean Corpuscular HGB CONC 32.8 g/dL (32.0-36.0); Mean Corpuscular Hemoglobin 29.4 pg (27.0-31.0); Mean Corpuscular Volume 89.6 fl (81.0-99.0); Monocytes 6 % (0-10); Neutrophil 85 % (42-75); PLT Morphology Comment Appears Decreased; Platelet Count 100 thou/uL (130-400); RBC Distribution Width 12.9 % (11.5-14.5); RBC Morphology Normal; Red Blood Cell (RBC) Count 4.18 mill/uL (4.20-5.40); White Blood Cell (WBC) Count 6.5 thou/uL (4.8-10.8)
[2017-05-10 05:21] LABS: Lactic Acid 0.9 mmol/L (0.5-2.2)
[2017-05-10 05:25] LABS: Anion Gap 11 mmol/L (10-20); BUN (Urea Nitrogen) 12 mg/dL (9.8-20.1); Calc. Creatinine Clearance 44 mL/min (70-130); Calcium 9.6 mg/dL (7.8-10.44); Carbon Dioxide 25 mmol/L (23-31); Chloride 111 mmol/L (98-107); Estimated GFR-MDRD 70; Glucose 121 mg/dL (83-110); Sodium 144 mmol/L (136-145)
[2017-05-10] MEDS: Sodium Chloride 0.9% 1,000 ML IV SCH (06:34)
[2017-05-10] MEDS ORDERED: Acetaminophen 500 MG TAB PO PRN (08:15)
[2017-05-10] MEDS: D5 0.9% NS w/ 20 mEq KCl 1,000 ML IV SCH ×2 (08:55→18:15)
[2017-05-10] MEDS: Dorzolamide HCl/Timolol Maleate 2%/0.5% Ophth Soln 10 ml Bottle EA EYE SCH ×2 (08:56→20:29)
[2017-05-10] MEDS ORDERED: MAG CIT PO SCH (09:00)
[2017-05-10] MEDS ORDERED: ASCORBIC ACID PO SCH (09:00)
[2017-05-10] MEDS ORDERED: CRANBERRY PO SCH (09:00)
[2017-05-10] MEDS ORDERED: TIMOLOL OP SCH (09:00)
[2017-05-10] MEDS ORDERED: DORZOLAMIDE OP SCH (09:00)
[2017-05-10] MEDS ORDERED: VIT B6 PO SCH (09:00)
[2017-05-10] MEDS ORDERED: [UNRECOGNIZED DRUG - OTHER] PO SCH (09:00)
--- NOTE | 2017-05-10 11:25 | HP ---
DATE OF ADMISSION: 05/09/2017 CHIEF COMPLAINT: Altered mental status, weakness and possible urosepsis. BRIEF HISTORY: This is a pleasant 86-year-old female with longstanding history of dementi a and recurrent urinary tract infection, presented to the emergency room with weakness, fatigue and worsening confusion. Workup showed a mildly elevated lactic acid level and urinalysis showing 4+ ba cteria. She was afebrile. She has a history of enterococcal UTI and has been admitted to the [facility] with IV antibiotics and IV fluids. This morning, she is feeling much better. She denies any fe talya or chills. Her daughter is in the room. She denies any chest pain or shortness of breath. She is able to recognize me, but is not sure where she just states that she wants to go home. PAST MEDICAL HISTORY: 1. Hypertension. 2. Dyslipidemia. 3. Overactive bladder. 4. 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 6. Recurrent urinary tract infection. PAST SURGICAL HISTORY: 1. Total abdominal hysterectomy. 2. Bilateral cataract extraction. 3. Posterior fossa angioblastoma removal in 1983. 4. Right retinal detachment surgery. 5. Hemangioblastoma removal in 03/2009. FAMILY HISTORY: Positive for coronary artery disease in her father. PSYCHOSOCIAL HISTORY: No tobacco, alcohol, or IV drug abuse. Very supportive daughter. MEDICATIONS AT HOME: 1. She is supposed to be on Norvasc 5 mg daily. 2. Aspirin 81 mg daily. 3. Lipitor 10 mg daily. 4. Vitamin D3 5000 International Units daily. 5. Aricept 5 mg daily. 6. Namenda 20 mg b.i.d. 7. Myrbetriq ER 25 mg daily. 8. Cranberry concentrate b.i.d. 9. Multivitamin daily. ALLERGIES: No known drug allergies. REVIEW OF SYSTEMS: CARDIOVASCULAR: Denies any chest pain, shortness of breath, palpitations, paroxysmal nocturnal dysp aldair, orthopnea, pedal edema. RESPIRATORY: Denies any chronic cough, expectoration or pleuritic type chest pain. GASTROINTESTINAL: Denies any nausea, vomiting, diarrhea, constipation, hematemesis, melena or hemat ochezia. GENITOURINARY: Denies any frequency, urgency, dysuria or hematuria. CENTRAL NERVOUS SYSTEM: No focal numbness, weakness, fainting spells except for this recent admissi on where she was fatigued probably due to dehydration and urinary tract infection. She does have co gnitive deficits. PHYSICAL EXAMINATION: GENERAL: A very pleasant 86-year-old female resting comfortably, in no acute distress. S he responds appropriately to simple questions. She is aware that she is not at home, but not sure w here she is, she is able to recognize me. VITAL SIGNS: She is afebrile, T-max 99.2, heart rate 69, respirations 18, oxygen saturation 98%, bl ood pressure is 156/71. HEENT: Normocephalic, atraumatic. Pupils equal and reactive to light and accommodation. Extraocul ar muscles intact. NECK: No JVD, thyromegaly, cervical adenopathy, throat exudates. No carotid bruits. CARDIOVASCULAR: S1, S2+. Rate and rhythm regular. RESPIRATORY SYSTEM: Normal vesicular breath sounds heard in all lung haddad. ABDOMEN: Soft, nontender, bowel sounds heard in all quadrants. EXTREMITIES: Without cyanosis or clubbing. Peripheral pulses are palpable. CENTRAL NERVOUS SYSTEM: Grossly nonfocal except for cognitive deficits. LABORATORY VALUES: White count of 6.5, H\T\H is 12.3 and 37.5, 85% neutrophils with 4% bands. Sodi um 144, potassium is low at 3, BUN and creatinine 12 and 0.78. Lactic acid yesterday was 2.5, it is down to 0.9 today. Urinalysis shows positive nitrites, trace leukocyte esterase, 4-6 WBCs and 4+ b acteria, 0-3 squamous epithelial cells. Cultures are pending. IMPRESSION: 1. Dehydration and urinary tract infection with possible urosepsis with elevated lactic acid. 2. Hypertension. 3. Dyslipidemia. 4. Osteoporosis. 5. Senile degeneration of the brain. 6. Overactive bladder. 7. History of recurrent urinary tract infection. PLAN: 1. Continue IV Rocephin. 2. Change IV fluids to D5 normal saline with 20 of K. 3. Resume home medications. 4. PlexiPulses for deep venous thrombosis prophylaxis. 5. Decubitus precautions. 6. Stress ulcer prophylaxis. 7. Recheck laboratory values in the morning. 8. Await urine cultures. 9. Discussed with daughter and patient in detail. All questions answered. 10. Dr. Arielle Murphy corporation officer this weekend. 11. Estimated length of stay 3 days.
[2017-05-10] MEDS: cefTRIAXone\\ROCEPHIN 1 GM in Sodium Chloride 0.9% 100 ML IVPB SCH (20:27)
[2017-05-10] MEDS: Atorvastatin Calcium 10 MG TAB PO SCH (20:29)
[2017-05-10] MEDS: Donepezil HCl 5 MG TAB PO SCH (20:29)
[2017-05-11] MEDS: D5 0.9% NS w/ 20 mEq KCl 1,000 ML IV SCH ×2 (05:05→15:38)
[2017-05-11 05:32] LABS: Band 2 % (5-11); Eosinophils 3 % (0-10); Hemoglobin 10.7 g/dL (12.0-16.0); Lymphocytes 21 % (21-51); MDiff Complete? YES; Mean Corpuscular HGB CONC 31.2 g/dL (32.0-36.0); Mean Corpuscular Hemoglobin 28.2 pg (27.0-31.0); Mean Corpuscular Volume 90.5 fl (81.0-99.0); Mean Platelet Volume 8.4 fL (7.4-10.4); Monocytes 7 % (0-10); Neutrophil 67 % (42-75); PLT Morphology Comment Appears Decreased; Platelet Count 87 thou/uL (130-400); RBC Distribution Width 12.8 % (11.5-14.5); RBC Morphology Normal; Red Blood Cell (RBC) Count 3.78 mill/uL (4.20-5.40); White Blood Cell (WBC) Count 3.6 thou/uL (4.8-10.8)
[2017-05-11 05:39] LABS: Anion Gap 8 mmol/L (10-20); BUN (Urea Nitrogen) 7 mg/dL (9.8-20.1); Calc. Creatinine Clearance 49 mL/min (70-130); Calcium 8.9 mg/dL (7.8-10.44); Carbon Dioxide 25 mmol/L (23-31); Chloride 113 mmol/L (98-107); Estimated GFR-MDRD 79; Glucose 121 mg/dL (83-110); Sodium 143 mmol/L (136-145)
[2017-05-11] MEDS: Dorzolamide HCl/Timolol Maleate 2%/0.5% Ophth Soln 10 ml Bottle EA EYE SCH ×2 (09:02→20:46)
--- NOTE | 2017-05-11 11:39 | PRG ---
DATE OF SERVICE: 05/11/2017 HISTORY OF PRESENT ILLNESS: Ms. Resendiz is a very pleasant 86-year-old white female, seen in the [facility] room with a urinary tract infection. She has a significant history for recurrent urinary tra ct infections and was admitted for IV antibiotics. Her daughter, Zoila, is in the room and she has n o complaints today. She is able to recognize me. SUBJECTIVE: The patient states she feels much better and she has no complaints today. We told her that today she will be continued with her IV antibiotics and will be awaiting her cultures. We told her we get her out of bed and her as mobile as possible. OBJECTIVE: VITAL SIGNS: This morning, reveal blood pressure 143/68, pulse 61 to 69, respirations 18 to 20, O2 sat 95% to 98%, T-max is 99.8. Awaiting cultures. GENERAL: This is a well-developed, well-nourished, pleasant white female in no apparent distress at this time. HEENT: Reveals normocephalic, nontraumatic cranium. Pupils are equally round and reactive. Extrao cular movements are intact. Nose and throat are slightly dry, but clear. NECK: Supple, without masses, nodes or bruits. LUNGS: Chest is clear to auscultation. No rales, rhonchi or wheezes are heard. HEART: Reveals a regular rate and rhythm without murmurs, gallops or rubs. ABDOMEN: Soft, nontender, slightly obese, without organomegaly. Normal bowel sounds are noted in a ll 4 quadrants. No rebound or guarding is noted. GENITOURINARY: Deferred. EXTREMITIES: Reveal no clubbing, cyanosis or edema. LABORATORY DATA: Today, reveals a white count of 3600, hemoglobin 10.7, hematocrit 34.2, platelet c ount is slightly low at 87,000. Sodium is 143, potassium is 3.0, but has been 3.0. We will continu e to repeat that tomorrow. BUN is 7, creatinine 0.70. Sugar is 121. ASSESSMENT: 1. Urinary tract infection. 2. Dehydration. 3. Hypertension. 4. Hyperlipidemia. 5. Senile dementia. 6. Osteoporosis. 7. Hyperactive bladder. 8. History of urinary tract infections, recurrent. PLAN: 1. Continue IV Rocephin. 2. Wait on culture and sensitivities. 3. Continue IV fluid of D5 normal with 20 of potassium. 4. Continue home medications. 5. Stress ulcer prophylaxis. 6. Decubitus precautions. 7. Deep venous thrombosis prophylaxis. 8. Repeat labs tomorrow morning. 9. Await urine cultures. 10. I did talk with the patient's daughter and answered all of her questions.
[2017-05-11] MEDS: cefTRIAXone\\ROCEPHIN 1 GM in Sodium Chloride 0.9% 100 ML IVPB SCH (20:46)
[2017-05-11] MEDS: Atorvastatin Calcium 10 MG TAB PO SCH (20:46)
[2017-05-11] MEDS: Donepezil HCl 5 MG TAB PO SCH (20:46)
[2017-05-12] MEDS: D5 0.9% NS w/ 20 mEq KCl 1,000 ML IV SCH (02:28)
--- NOTE | 2017-05-12 08:17 | PRG ---
DATE OF SERVICE: 05/12/2017 DATE OF ADMISSION: 05/09/2017 HISTORY OF PRESENT ILLNESS: The patient is an 86-year-old white female that was admitted with alter ed mental status. She was found to have urinary tract infection and dehydration. She was started o n Rocephin and hydration has actually done very well. PHYSICAL EXAMINATION: VITAL SIGNS: Reveal blood pressure last night was 166/69, this morning it is pending, pulse 60-72, respirations 18-20, O2 sat 94%-96% on room air, T-max 98.6. GENERAL: This is a well-developed, well-nourished, slightly obese white female in no apparent distr ess at this time. HEENT: Reveals normocephalic, nontraumatic cranium. Pupils are equally round and reactive. Extrao cular movements intact. Nose and throat are still slightly dry. NECK: Supple, without masses, nodes or bruits. LUNGS: Chest is clear to auscultation. No rales, no rhonchi, no wheezes are heard. No cough is no jennifer. HEART: Reveals a regular rate and rhythm without murmurs, gallops or rubs. ABDOMEN: Soft and nontender, without organomegaly. Normal bowel sounds are noted. No rebound or g uarding is noted. : Exam is deferred. The patient has no urinary symptoms. EXTREMITIES: Reveal no clubbing, cyanosis or edema. LABORATORY DATA: Urine culture and sensitivity reveals patient is growing Klebsiella pneumonia grea ter than 100,000. It is sensitive to her present antibiotic of Rocephin, but also to oral antibioti cs of Cipro, Levaquin, nitrofurantoin, and trimethoprim sulfa. ASSESSMENT: 1. Urinary tract infection with Klebsiella pneumoniae. 2. Dehydration. 3. Hypertension. 4. Hyperlipidemia. 5. Senile dementia. 6. Osteoporosis. 7. Hyperactive bladder. 8. History of recurrent urinary tract infections. PLAN: 1. Will stop the patient's IV Rocephin. 2. Switch the patient to saline lock. 3. Start the patient on Cipro 500 mg b.i.d. since it is sensitive to Cipro. 4. Continue home medications. 5. Stress ulcer prophylaxis. 6. Decubitus precautions. 7. Deep venous thrombosis prophylaxis. 8. Start the patient on oral antibiotics today. If the patient remains stable, we will discharge t omorrow morning.
[2017-05-12] MEDS: Dorzolamide HCl/Timolol Maleate 2%/0.5% Ophth Soln 10 ml Bottle EA EYE SCH ×2 (08:36→20:41)
[2017-05-12] MEDS: FLU VACC QS2017-18 36 mo. & older 0.5 ML SYRINGE IM ONE (08:39)
[2017-05-12] MEDS: Atorvastatin Calcium 10 MG TAB PO SCH (20:40)
[2017-05-12] MEDS: Cipro 250 MG TAB PO SCH (20:40)
[2017-05-12] MEDS: Donepezil HCl 5 MG TAB PO SCH (20:41)
[2017-05-13] MEDS: Dorzolamide HCl/Timolol Maleate 2%/0.5% Ophth Soln 10 ml Bottle EA EYE SCH (08:53)
[2017-05-13 08:56] VITALS: BP 168/74
[2017-05-13] MEDS: Cipro 250 MG TAB PO SCH (08:56)
[2017-05-13] MEDS: FLU VACC QS2017-18 36 mo. & older 0.5 ML SYRINGE IM ONE (08:57)
[2017-05-13 09:20] VITALS: TEMP 98.3
[2017-05-13 13:32] LABS: Potassium 3.1 mmol/L (3.5-5.1)
[2017-05-13] MEDS ORDERED: Potassium Chloride 20 MEQ TAB PO SCH (14:15)
--- NOTE | 2017-05-13 22:07 | DIS ---
DATE OF ADMISSION: 05/09/2017 DATE OF DISCHARGE: 05/13/2017 PRINCIPAL DIAGNOSIS: Urinary tract infection with Klebsiella. SECONDARY DIAGNOSES: 1. Hypertension. 2. Dyslipidemia. 3. Overactive bladder. 4. 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 COMPLICATIONS: None. ADVERSE REACTIONS: None. PROCEDURES: None. CONSULTATIONS: None. HOSPITAL COURSE: The patient was admitted with weakness, altered mental status, elevated lactic aci d level and urine showing 4+ bacteria. She was admitted to the hospital with IV Rocephin and IV flu ids. The next day, her lactic acid level was back to normal. Urine cultures grew Klebsiella, which is ESBL negative and sensitive to ciprofloxacin. She was switched to oral ciprofloxacin. Her IV f luids were discontinued. She had low potassium and IV fluids, her potassium was replaced, but for s ome reason the labs were not rechecked. The plan is to check a potassium level now and if it is nor mal depending upon how it is we will either discharge her home if it is normal or if it is low, we w ill give her an oral dose of potassium before discharging her home. DISCHARGE MEDICATIONS: Norvasc 5 mg daily, aspirin 81 mg daily, Lipitor 10 mg daily, Aricept 5 mg d aily, Namenda 20 mg b.i.d., Myrbetriq ER 25 mg daily, multivitamin 1 tablet daily, cranberry tablet b.i.d., vitamin D3 of 5000 international units daily, and ciprofloxacin 500 mg b.i.d. for 7 days. DIET: Heart healthy diet. ACTIVITY: As tolerated. [facility] She is to call us with any questions or concerns. Carolina ruffin will pick her up today this evening after work. She will follow up with me in 2 weeks. PHYSICAL EXAMINATION: VITAL SIGNS: On the day of discharge, she is afebrile, heart rate is 58, respirations are 20, oxyge n saturation is 95%, blood pressure is 168/74. CARDIOVASCULAR SYSTEM: S1, S2 plus. RESPIRATORY SYSTEM: Normal vesicular breath sounds. ABDOMEN: Soft, nontender, bowel sounds heard in all quadrants. EXTREMITIES: Without cyanosis or clubbing. Peripheral pulses are palpable. CENTRAL NERVOUS SYSTEM: Cognitive deficits, otherwise nonfocal. Total time spent on this discharge 35 minutes.
== END 2017-05-13 15:15 | disposition home or self-care (01) | DRG 690 ==
LOC: NAV ERS 20:25 → NAV ACUTE 22:44
PROVIDERS: ADMIT Internal Medicine; ATTEND Internal Medicine
DX: N39.0 Urinary tract infection, site not specified (principal); E87.2 Acidosis; B96.1 Klebsiella pneumoniae [K. pneumoniae] as the cause of diseases classified elsewhere; F03.90 Unspecified dementia, unspecified severity, without behavioral disturbance, psychotic disturbance, mood disturbance, and anxiety; E86.0 Dehydration; I10 Essential (primary) hypertension; E78.5 Hyperlipidemia, unspecified; N32.81 Overactive bladder; M81.0 Age-related osteoporosis without current pathological fracture; Z79.82 Long term (current) use of aspirin; Z87.440 Personal history of urinary (tract) infections; Z82.49 Family history of ischemic heart disease and other diseases of the circulatory system
CPT/HCPCS: 36415; 51701; 71010; 80048; 80053; 81003; 81015; 82550; 82553; 83605; 83880; 84132; 84484; 85025; 87040; 87077; 87086; 87186; 90471; 90682; 93005; 96361; 96365; A4216; A4353; G0008; J0696; J7050; Q2036

== ENCOUNTER 2017-11-01 18:11 | Emergency (ER) | payer MEDICARE ==
[2017-11-01 18:36] LABS: Bilirubin Negative (Negative); Blood, Urine Negative (Negative); Clarity Slightly Cloudy (Clear); Glucose, Urine (Dipstick) Negative (Negative); Leukocyte Trace (Negative); Nitrite Positive (Negative); Protein, Urine (Dipstick) Trace mg/dL (Neg-Trace); Specific Gravity, Urine 1.015 (1.005-1.030); pH, Urine 7.5 (5.0-9.0)
[2017-11-01 18:50] LABS: Bacteria/HPF 2+ HPF (None Seen); RBC/HPF 0-3 HPF (0-3); Squamous Epithelial 0-3 HPF (0-3)
[2017-11-01] MEDS ORDERED: Nitrofurantoin Macrocrystal 50 MG CAP ONE (19:11)
== END 2017-11-01 19:20 | disposition home or self-care (01) ==
LOC: NAV ERS 18:11
DX: N39.0 Urinary tract infection, site not specified (principal); F03.90 Unspecified dementia, unspecified severity, without behavioral disturbance, psychotic disturbance, mood disturbance, and anxiety; E78.5 Hyperlipidemia, unspecified; I10 Essential (primary) hypertension; Z79.82 Long term (current) use of aspirin; Z79.899 Other long term (current) drug therapy
CPT/HCPCS: 81003; 81015; 87077; 87086; 87186; 99284

== ENCOUNTER 2017-11-30 11:57 | Emergency (ER) | payer MEDICARE ==
[2017-11-30 12:41] LABS: Bilirubin Negative (Negative); Blood, Urine Negative (Negative); Glucose, Urine (Dipstick) Negative (Negative); Leukocyte Trace (Negative); Nitrite Positive (Negative); Protein, Urine (Dipstick) Trace mg/dL (Neg-Trace); Specific Gravity, Urine 1.015 (1.005-1.030); Urobilinogen 0.2 mg/dL (0.2-1.0)
[2017-11-30 12:49] LABS: Clarity Cloudy (Clear)
[2017-11-30 12:52] LABS: RBC/HPF 0-3 HPF (0-3)
[2017-11-30 12:53] LABS: Bacteria/HPF 2+ HPF (None Seen); Squamous Epithelial 0-3 HPF (0-3)
== END 2017-11-30 13:09 | disposition home or self-care (01) ==
LOC: NAV ERS 11:57
DX: N30.00 Acute cystitis without hematuria (principal); E78.5 Hyperlipidemia, unspecified; I10 Essential (primary) hypertension; F03.90 Unspecified dementia, unspecified severity, without behavioral disturbance, psychotic disturbance, mood disturbance, and anxiety; Z79.82 Long term (current) use of aspirin; Z79.899 Other long term (current) drug therapy
CPT/HCPCS: 81003; 81015; 87086; 99284

== ENCOUNTER 2018-01-11 12:31 | Emergency (ER) | payer MEDICARE ==
[2018-01-11 13:42] LABS: Bilirubin Negative (Negative); Blood, Urine Negative (Negative); Clarity Slightly Cloudy (Clear); Glucose, Urine (Dipstick) Negative (Negative); Leukocyte Large (Negative); Nitrite Positive (Negative); Protein, Urine (Dipstick) 30 mg/dL (Neg-Trace); Urobilinogen 0.2 mg/dL (0.2-1.0); pH, Urine 7.5 (5.0-9.0)
[2018-01-11 13:51] LABS: Bacteria/HPF 3+ HPF (None Seen); RBC/HPF 0-3 HPF (0-3)
== END 2018-01-11 14:16 | disposition home or self-care (01) ==
LOC: NAV ERS 12:31
DX: N30.00 Acute cystitis without hematuria (principal); E78.5 Hyperlipidemia, unspecified; I10 Essential (primary) hypertension; F03.90 Unspecified dementia, unspecified severity, without behavioral disturbance, psychotic disturbance, mood disturbance, and anxiety; Z79.899 Other long term (current) drug therapy; Z79.82 Long term (current) use of aspirin
CPT/HCPCS: 81003; 81015; 87077; 87086; 99284

== ENCOUNTER 2018-02-07 19:16 | Emergency (ER) | payer MEDICARE ==
[2018-02-07 20:01] LABS: Bilirubin Negative (Negative); Blood, Urine Trace (Negative); Clarity Clear (Clear); Glucose, Urine (Dipstick) Negative (Negative); Leukocyte Moderate (Negative); Nitrite Negative (Negative); Protein, Urine (Dipstick) Negative (Neg-Trace); Specific Gravity, Urine 1.015 (1.005-1.030); Urobilinogen 0.2 mg/dL (0.2-1.0)
[2018-02-07 20:26] LABS: Bacteria/HPF 1+ HPF (None Seen); RBC/HPF 0-3 HPF (0-3)
[2018-02-07] MEDS ORDERED: Sulfameth/Trimethoprim DS 800-160mg TAB ONE (20:54)
== END 2018-02-07 21:05 | disposition home or self-care (01) ==
LOC: NAV ERS 19:16
DX: N39.0 Urinary tract infection, site not specified (principal); I10 Essential (primary) hypertension; E78.5 Hyperlipidemia, unspecified; F03.90 Unspecified dementia, unspecified severity, without behavioral disturbance, psychotic disturbance, mood disturbance, and anxiety; Z79.82 Long term (current) use of aspirin; Z79.899 Other long term (current) drug therapy; Z87.01 Personal history of pneumonia (recurrent)
CPT/HCPCS: 81003; 81015; 87077; 87086; 99283

== ENCOUNTER 2018-04-18 19:07 | Emergency (ER) | payer MEDICARE ==
[2018-04-18 19:57] LABS: #Basophils 0.1 thou/uL (0.0-0.2); #Eosinphils 0.3 thou/uL (0.0-0.7); #Lymphocytes 1.8 thou/uL (1.20-3.40); #Monocytes 0.6 thou/uL (0.11-0.59); #Neutrophils 3.9 thou/uL (1.40-6.50); %Basophils 0.9 % (0.0-1.0); %Eosinophils 4.8 % (0.0-10.0); %Lymphocytes 27.4 % (21.0-51.0); %Monocytes 8.5 % (0.0-10.0); %Neutrophils 58.4 % (42.0-75.0); Hemoglobin 13.2 g/dL (12.0-16.0); Mean Corpuscular HGB CONC 31.9 g/dL (32.0-36.0); Mean Corpuscular Volume 87.5 fL (78.0-98.0); Platelet Count 158 thou/uL (130-400); Red Blood Cell (RBC) Count 4.74 mill/uL (4.20-5.40); White Blood Cell (WBC) Count 6.7 thou/uL (4.8-10.8)
[2018-04-18 20:12] LABS: Bilirubin Negative (Negative); Blood, Urine Negative (Negative); Clarity Clear (Clear); Glucose, Urine (Dipstick) Negative (Negative); Leukocyte Negative (Negative); Nitrite Negative (Negative); Protein, Urine (Dipstick) Negative (Neg-Trace); Specific Gravity, Urine 1.015 (1.005-1.030); Urobilinogen 0.2 mg/dL (0.2-1.0)
[2018-04-18 20:23] LABS: ALT (SGPT) 49 U/L (8-55); AST (SGOT) 42 U/L (5-34); Alkaline Phosphatase 70 U/L (40-150); Anion Gap 13 mmol/L (10-20); BUN (Urea Nitrogen) 17 mg/dL (9.8-20.1); Bilirubin, Total 0.4 mg/dL (0.2-1.2); Calc. Creatinine Clearance 0 mL/min (70-130); Calcium 10.5 mg/dL (7.8-10.44); Carbon Dioxide 24 mmol/L (23-31); Chloride 106 mmol/L (98-107); Estimated GFR-MDRD 58; Globulin 2.8 g/dL (2.4-3.5); Glucose 178 mg/dL (83-110); Potassium 3.7 mmol/L (3.5-5.1); Protein, Total 6.8 g/dL (6.0-8.3); Sodium 139 mmol/L (136-145)
== END 2018-04-18 21:15 | disposition home or self-care (01) ==
LOC: NAV ERS 19:07
DX: R41.82 Altered mental status, unspecified (principal); T36.8X5A Adverse effect of other systemic antibiotics, initial encounter; E78.5 Hyperlipidemia, unspecified; I10 Essential (primary) hypertension; F03.90 Unspecified dementia, unspecified severity, without behavioral disturbance, psychotic disturbance, mood disturbance, and anxiety; Z79.82 Long term (current) use of aspirin; Z79.899 Other long term (current) drug therapy
CPT/HCPCS: 51701; 80053; 81003; 85025; 87086; A4353